=== PATIENT | female | born 1995 | race African-American/Black ===

== ENCOUNTER 2023-01-22 20:29 | Emergency (ER) | payer MEDICAID, OTHER ==
[~2023-01-22] VITALS: Ht 165.1 cm; Wt 73.2 kg
[2023-01-22] MEDS ORDERED: ACET-1158 PO (22:51)
[2023-01-22] MEDS ORDERED: AMOX-277 PO (22:51)
[2023-01-22 23:47] VITALS: BP 130/82
== END 2023-01-22 23:13 | disposition home or self-care (01) ==
LOC: ER 20:29
DX: J32.9 Chronic sinusitis, unspecified (principal); J06.9 Acute upper respiratory infection, unspecified; F12.10 Cannabis abuse, uncomplicated; Z88.1 Allergy status to other antibiotic agents